=== PATIENT | female | born 1945 | race Hispanic/Latino ===

== ENCOUNTER 2017-05-03 02:00 | Emergency (ER) | payer MEDICARE, OTHER ==
[2017-05-03 02:11] VITALS: BP 185/77; PULSE 74; RESP 17; O2SAT 96
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
[2017-05-03 02:25] LABS: BASOPHILS % (AUTO) 0.4 % (0-3); MONOCYTES % (AUTO) 8.1 % (4-12); Mean Corpuscular Hemoglobin 30.3 pg (27.0-35.0); Mean Corpuscular Volume 86.9 fL (81-100); NEUTROPHILS % (AUTO) 43.2 % (40-74); Platelet Count 252 bil/L (150-400)
[2017-05-03] MEDS ORDERED: 0.9% Sodium Chloride 1,000 ML IV ONE (02:26)
[2017-05-03] MEDS ORDERED: HYDROmorphone 0.5 mg/0.5 mL iSecure Syringe IVPUSH PRN (02:30)
[2017-05-03 02:55] LABS: Magnesium 2.1 mg/dL (1.6-2.6)
[2017-05-03] MEDS ORDERED: Ondansetron 2 mg/mL 2 mL Inj ONE ×2 (03:41→04:49)
[2017-05-03 03:55] LABS: INR 0.91 ratio
[2017-05-03 04:13] LABS: TROPONIN T < 0.010 ug/L (0.0-0.011)
[2017-05-03 04:14] LABS: Lipase 60 U/L (13-60)
[2017-05-03 04:17] VITALS: BP 169/74; PULSE 82; RESP 20; O2SAT 92
[2017-05-03] MEDS ORDERED: FAMO20T PO (04:19)
[2017-05-03] MEDS ORDERED: IBUP400T22 PO (04:19)
[2017-05-03] MEDS ORDERED: _HYDROcodone/APAP 5-325 mg Tablet PO PRN (06:00)
[2017-05-03] MEDS ORDERED: _Ondansetron ODT 4 mg Tablet PO PRN (06:00)
[2017-05-03 06:37] VITALS: BP 149/59; PULSE 88; RESP 12; O2SAT 94
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
--- NOTE | 2017-05-03 09:44 | DRSVH ---
PROCEDURE: X-RAY FINGERS, TWO VIEWS RIGHT INDICATIONS: post reduction TECHNIQUE: AP hand, 2 views of the third finger(s) acquired. COMPARISON: None. FINDINGS: Bones: Improved alignment status post closed reduction of the third digit DIP dislocation. No defini te associated fracture seen. Osteoarthritic changes redemonstrated. Diffuse osteopenia again noted. Soft tissues: No suspicious soft tissue calcifications. IMPRESSION: Improved alignment status post closed reduction of the third digit DIP dislocation. Dictated by: Justo MORALEZ Interpreted: Doris Lang MD on 05/03/2017 at 9:18 Approved by: Doris Lang M.D. on 05/03/2017 at 9:42
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
== END 2017-05-03 06:38 | disposition home or self-care (01) ==
LOC: EDUNIT# 02:00 → EDBD 02:00 → SED 02:00
DX: S20.211A Contusion of right front wall of thorax, initial encounter (principal); S63.292A Dislocation of distal interphalangeal joint of right middle finger, initial encounter; S61.212A Laceration without foreign body of right middle finger without damage to nail, initial encounter; R91.1 Solitary pulmonary nodule; V43.62XA Car passenger injured in collision with other type car in traffic accident, initial encounter; Y93.9 Activity, unspecified; Y92.410 Unspecified street and highway as the place of occurrence of the external cause; Y99.8 Other external cause status
CPT/HCPCS: 12002; 26770; 36415; 71260; 73130; 73140; 74177; 80053; 83690; 83735; 84484; 85025; 85610; 85730; 93005; 96374; 96375; 96376; 99285; G0480; J1170; J2405; J7030; Q9967

== ENCOUNTER 2017-05-12 08:05 | Emergency (ER) | payer OTHER, MEDICARE ==
[~2017-05-12 08:05] MED LIST: FAMO20T PO; IBUP400T22 PO
[2017-05-12 08:16] VITALS: BP 187/103; PULSE 77; RESP 20; O2SAT 97
== END 2017-05-12 08:15 | disposition home or self-care (01) ==
LOC: SED 08:05
DX: Z48.02 Encounter for removal of sutures (principal)